=== PATIENT | male | born 1995 | race African-American/Black ===

== ENCOUNTER 2021-11-09 10:43 | Emergency (ER) | payer OTHER ==
[~2021-11-09] VITALS: Ht 188 cm; Wt 82.0 kg
[2021-11-09] MEDS ORDERED: IBUPROFEN 600MG TABLET PO ONE (12:45)
[2021-11-09] MEDS ORDERED: IBUP-2029 MT (12:50)
[2021-11-09 13:05] VITALS: BP 123/81
== END 2021-11-09 13:08 | disposition home or self-care (01) ==
LOC: ER 10:54
DX: S09.8XXA Other specified injuries of head, initial encounter (principal); X58.XXXA Exposure to other specified factors, initial encounter; Y93.89 Activity, other specified; Y92.89 Other specified places as the place of occurrence of the external cause; Y99.8 Other external cause status
CPT/HCPCS: 99282